=== PATIENT | female | born 1970 | race Caucasian/White ===

== ENCOUNTER 2017-06-09 15:44 | Emergency (ER) | payer BC ==
[~2017-06-09] VITALS: Ht 160 cm; Wt 63.5 kg
[~2017-06-09 15:44] MED LIST: ACETAMINOPHEN-1 EAC1 PO; ALBUTEROL INHAL17 GM IH; AMOXICILLIN 50500 M1 PO; ANORO ELLIPTA1 EACH IH; ASPIR 8181 MG PO; AZITHROMYCIN 2250 MG PO; BACTRIM DS TAB1 EACH PO; BUSPIRONE HCL10 MG PO; CLARITIN OTC; CLARITIN10 M2; CLARITIN10 MG; CLARITIN10 MG PO; COQ10-VIT E 101 EACH PO; DOXYCYCLINE 10100 MG PO; ERYTHROMYCIN E3.5 G1 OP; FISH OIL 1,001000 M2 PO; FLAX OIL1000 MG PO; IBUPROFEN 800800 M1 PO; LOVASTATIN 20 M20 MG PO; MEDROL DOSPAK21 TA1 PO; MEDROLDOSEPACK PO; MULTIVITAMINS1 EAC7 PO; NASONEX17 GM NASAL; NEURONTIN 300300 M1 PO; PERCOCET 5-3251 EACH PO; PRAVACHOL20 MG PO; PREDNISONE 10 M10 M1 PO; PREDNISONE 20 M20 M1 PO; PREDNISONE 20 M20 MG PO; PREDNISONE50 MG PO; PROAIR HFA8.5 GM IH; PROAIR HFA8.5 GM INH; PROMETHAZINE-C120 ML PO; PROTONIX40 M1 PO; PROTONIX40 M3 PO; QVAR HFA 880 MCG/UN1 INH; RIFAMPIN 300 M300 M1 PO; ROBAXIN500 MG PO; ROBITUSSIN100 MG/53 PO; SERTRALINE HCL50 MG PO; TESSALON PERLE100 MG PO; TRAZODONE HCL50 MG PO; TRIAMCINOLONE; TRIAMCINOLONE A80 G2 TOP; ULTRAM 50MG TAB50 MG PO; VENTOLIN HFA 1818 GM INH; ZOFRAN ODT4 MG SUBLING; ZOFRAN4 MG PO; ZPAK PO; [UNRECOGNIZED DRUG - OTHER] PO
[2017-06-09 16:40] LABS: ABSOLUTE BASOPHILS 0.1 thou/uL (0.0-0.2); ABSOLUTE EOSINOPHILS 0.2 thou/uL (0.0-0.7); ABSOLUTE LYMPHOCYTES 1.9 thou/uL (0.8-5.3); ABSOLUTE MONOCYTES 0.6 thou/uL (0.0-1.2); ABSOLUTE NEUTROPHILS 6.5 thou/uL (1.6-8.1); BASOPHILS 1.1 %; EOSINOPHILS 2.3 %; HEMATOCRIT 43.2 % (37.0-47.0); HEMOGLOBIN 13.7 gm/dL (12.0-15.0); LYMPHOCYTES 20.6 %; MCH 30.4 pg (26.0-34.0); MCHC 31.7 g/dL (28.0-37.0); MCV 95.9 fL (80.0-100.0); MONOCYTES 6.5 %; MPV 9.4 fl. (7.2-11.1); NUCLEATED RBCS 0 /100WBC; PLATELET COUNT* 277 thou/uL (150-400); POLYS 69.5 %; RDW-CV 14.8 % (10.5-14.5); WBC 9.3 thou/uL (4.0-11.0)
[2017-06-09 16:49] LABS: CALCIUM 8.8 mg/dL (8.5-10.1); CREATININE 0.7 mg/dL (0.6-1.3); POTASSIUM 4.2 mmol/L (3.5-5.1)
[2017-06-09 16:54] LABS: ALBUMIN 3.1 g/dL (3.4-5.0); TOTAL BILIRUBIN 0.3 mg/dL (<0.1-1.0); TOTAL PROTEIN 6.3 g/dL (6.4-8.2)
[2017-06-09 17:35] LABS: URINE BILIRUBIN NEGATIVE (Negative); URINE BLOOD NEGATIVE (Negative); URINE CLARITY CLEAR; URINE COLOR YELLOW; URINE GLUCOSE-RANDOM NEGATIVE (Negative); URINE KETONES NEGATIVE (Negative); URINE LEUKOCYTES-REFLEX NEGATIVE (Negative); URINE NITRITE-REFLEX NEGATIVE (Negative); URINE PROTEIN NEGATIVE (Negative); URINE UROBILINOGEN 0.2 E.U./dl (0.2-1.0)
[2017-06-09 18:51] VITALS: BP 102/41
--- NOTE | 2017-06-10 10:27 | EKG ---
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 06/10/17 1027 1554 1554 Lorne Mendez MD, FACC /EPI
== END 2017-06-09 18:53 | disposition home or self-care (01) ==
LOC: M.ERS 15:44
PROVIDERS: Personal Emergency Response Attendant
DX: R55 Syncope and collapse (principal); J45.909 Unspecified asthma, uncomplicated; J44.9 Chronic obstructive pulmonary disease, unspecified; F17.210 Nicotine dependence, cigarettes, uncomplicated; Z88.6 Allergy status to analgesic agent; Z88.5 Allergy status to narcotic agent; Z88.1 Allergy status to other antibiotic agents; Z88.8 Allergy status to other drugs, medicaments and biological substances

== ENCOUNTER → 2017-06-11 | Outpatient (CLI) | payer BC ==
[~2017-06-11] MED LIST changes: +CHANTIX1 MG PO; +NITROGLYCERIN0.4 MG SUBLING; +SYMBICORT160 MCG/4. INH
== END ==
LOC: M.RAD 14:18
DX: M43.22 Fusion of spine, cervical region (principal); R55 Syncope and collapse; Z98.890 Other specified postprocedural states

== ENCOUNTER 2017-09-29 18:23 | Emergency (ER) | payer BC ==
[~2017-09-29] VITALS: Ht 160 cm; Wt 59.0 kg
[~2017-09-29 18:23] MED LIST changes: -CHANTIX1 MG PO; -NITROGLYCERIN0.4 MG SUBLING; -SYMBICORT160 MCG/4. INH
[2017-09-29] MEDS ORDERED: CHANTIX1 MG PO (18:43)
[2017-09-29 19:10] LABS: ABSOLUTE BASOPHILS 0.1 thou/uL (0.0-0.2); ABSOLUTE EOSINOPHILS 0.4 thou/uL (0.0-0.7); ABSOLUTE LYMPHOCYTES 2.9 thou/uL (0.8-5.3); ABSOLUTE MONOCYTES 0.7 thou/uL (0.0-1.2); ABSOLUTE NEUTROPHILS 5.5 thou/uL (1.6-8.1); BASOPHILS 1.3 %; HEMOGLOBIN 13.4 gm/dL (12.0-15.0); LYMPHOCYTES 29.8 %; MCH 29.6 pg (26.0-34.0); MCHC 32.8 g/dL (28.0-37.0); MCV 90.2 fL (80.0-100.0); MONOCYTES 7.2 %; MPV 8.5 fl. (7.2-11.1); NUCLEATED RBCS 0 /100WBC; PLATELET COUNT* 246 thou/uL (150-400); POLYS 57.7 %; RBC 4.54 mil/uL (4.20-5.00); WBC 9.6 thou/uL (4.0-11.0)
[2017-09-29 19:18] LABS: ANION GAP 6 mmol/L (7-16); BUN 13 mg/dL (7-18); CALCIUM 8.8 mg/dL (8.5-10.1); CHLORIDE 104 mmol/L (98-107); CO2 29 mmol/L (21-32); CREATININE 0.7 mg/dL (0.6-1.3); GLUCOSE 133 mg/dL (70-99); POTASSIUM 3.4 mmol/L (3.5-5.1); SODIUM 139 mmol/L (136-145)
[2017-09-29 19:25] LABS: ALBUMIN 3.2 g/dL (3.4-5.0); ALKALINE PHOSPHATASE 70 U/L (46-116); SGOT 11 U/L (15-37); SGPT 16 U/L (30-65); TOTAL BILIRUBIN 0.3 mg/dL (<0.1-1.0); TOTAL PROTEIN 6.4 g/dL (6.4-8.2); TROPONIN-I LEVEL <0.06 ng/mL (<0.06)
[2017-09-29 19:56] VITALS: BP 129/74
--- NOTE | 2017-09-30 10:18 | EKG ---
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
== END 2017-09-29 19:57 | disposition home or self-care (01) ==
LOC: M.ERS 18:23
PROVIDERS: Nurse Practitioner Family
DX: R03.0 Elevated blood-pressure reading, without diagnosis of hypertension (principal); R07.9 Chest pain, unspecified; J44.9 Chronic obstructive pulmonary disease, unspecified; E78.00 Pure hypercholesterolemia, unspecified; F17.210 Nicotine dependence, cigarettes, uncomplicated; Z88.1 Allergy status to other antibiotic agents; Z88.5 Allergy status to narcotic agent

== ENCOUNTER → 2017-10-25 | Outpatient (CLI) | payer BC ==
[~2017-10-25] MED LIST changes: +CHANTIX1 MG PO; +NITROGLYCERIN0.4 MG SUBLING; +SYMBICORT160 MCG/4. INH
--- NOTE | 2017-10-25 12:52 | EXE ---
[place] [address] STRESS ECHOCARDIOGRAM Name: MARY CARMEN CHINCHILLA Room: [facility]#: [id number] Admission: 10/25/17 Attend Phys: Yariel Strauss, Discharge: Date of : 70 Date of Service: 10/25/17 1251 Report #: [id number] THIS REPORT FOR: //name// APPROVED REPORT Study performed: 10/25/2017 11:29:43 Exam: Stress Echocardiogram Indication: Chest pain , Dyspnea Patient Location: Out-Patient Stress Nurse: Kassandra Cooper RN Supervising Physician: Lorne Mendez MD Status: routine Ht: 5 ft 3 in HR: 73 bpm BP: 117/68 mmHg Rhythm: NSR Medical History Cardiac Risk Factors: Hyperlipidemia, Smoking, FHX of CAD Procedure The patient underwent an Exercise Stress Test using the Adithya Protocol. Blood pressure, heart rate, and EKG were monitored. An Echocardiogram was performed by echo technician in four stages in quad fashion. At peak stress, four selected images were obtained and placed side by side with resting images for comparison. Stress Test Details Stress Test: Exercise stress testing was performed using a Adithya protocol. HR Resting HR: 73 bpm Max Heart Rate (APMHR): 173 bpm Max HR Achieved: 156 bpm Target HR (85% APMHR): 147 bpm % of APMHR: 90 Recovery HR: 86 bpm HR response to stress: Normal HR response to stress BP Resting BP: 117/68 mmHg Max BP: 164/61 mmHg Recovery BP: 132/61 [place] [address] STRESS ECHOCARDIOGRAM Name: MARY CARMEN CHINCHILLA Room: [facility]#: [id number] Admission: 10/25/17 Attend Phys: Yariel Strauss, Discharge: Date of : 70 Date of Service: 10/25/17 1251 Report #: [id number] Clinical Reason for Termination: Dyspnea, Dizziness Exercise duration: 9 min 35 sec Highest Stage Achieved: Stage 4: 4.2 mph at 16% grade. Exercise capacity: 11.27 METs Pre-Stress Echo The resting Echocardiogram showed normal left ventricular contractility with an estimated Ejection Fraction of about 55-60%. Normal wall motion in all segments on baseline images. Post-Stress Echo The stress Echocardiogram showed normal left ventricular contractility with an estimated Ejection Fraction of about >70%. Normal augmentation of wall motion in all segments on post stress images. Clinical Normal augmentation of myocardial wall segments using a 17 segment model. Conclusion Clinical Response: Non-ischemic Exercise Capacity: Average Stress ECG Response: Ischemic Stress Echo Images: Non-ischemic The patient developed [address] depression in the anterolateral leads in the immediate post exercise phase which promptly cleared. Post stress echo images were entirely normal. Suspect false positive EKG portion. Other Information Study Quality: Good <Conclusion> The patient developed [address] depression in the anterolateral leads in the immediate post exercise phase which promptly cleared. Post stress echo images were entirely normal. Suspect false positive EKG portion. <ELECTRONICALLY SIGNED> By: Oj Costello MD, [facility] 10/25/17 1251 1251 125 Oj Costello MD, FACC /INF
== END ==
LOC: M.CRD 10:40
DX: R07.9 Chest pain, unspecified (principal); R06.00 Dyspnea, unspecified; R07.2 Precordial pain

== ENCOUNTER 2017-11-10 16:52 | Inpatient (IN) | payer BC ==
[~2017-11-10] VITALS: Ht 160 cm; Wt 60.8 kg
[~2017-11-10 16:52] MED LIST changes: -NITROGLYCERIN0.4 MG SUBLING; -SYMBICORT160 MCG/4. INH
[2017-11-10 16:54] VITALS: BP 134/80
[2017-11-10] MEDS ORDERED: NITROGLYCERIN0.4 MG SUBLING (16:57)
[2017-11-10] MEDS ORDERED: ASPIR 8181 MG PO (16:57)
[2017-11-10] MEDS ORDERED: SYMBICORT160 MCG/4. INH (16:58)
[2017-11-10 17:25] LABS: ABSOLUTE BASOPHILS 0.1 thou/uL (0.0-0.2); ABSOLUTE EOSINOPHILS 0.3 thou/uL (0.0-0.7); ABSOLUTE LYMPHOCYTES 2.5 thou/uL (0.8-5.3); ABSOLUTE MONOCYTES 0.7 thou/uL (0.0-1.2); ABSOLUTE NEUTROPHILS 4.2 thou/uL (1.6-8.1); BASOPHILS 1.4 %; EOSINOPHILS 4.1 %; HEMATOCRIT 41.4 % (37.0-47.0); HEMOGLOBIN 13.9 gm/dL (12.0-15.0); LYMPHOCYTES 32.2 %; MCH 30.3 pg (26.0-34.0); MCHC 33.5 g/dL (28.0-37.0); MCV 90.4 fL (80.0-100.0); MONOCYTES 9.1 %; MPV 8.6 fl. (7.2-11.1); NUCLEATED RBCS 0 /100WBC; PLATELET COUNT* 283 thou/uL (150-400); POLYS 53.2 %; RBC 4.57 mil/uL (4.20-5.00); RDW-CV 14.9 % (10.5-14.5); WBC 7.9 thou/uL (4.0-11.0)
[2017-11-10 17:27] LABS: ANION GAP 4 mmol/L (7-16); BUN 13 mg/dL (7-18); CALCIUM 8.7 mg/dL (8.5-10.1); CHLORIDE 105 mmol/L (98-107); CO2 31 mmol/L (21-32); CREATININE 0.9 mg/dL (0.6-1.3); GLUCOSE 95 mg/dL (70-99); POTASSIUM 4.2 mmol/L (3.5-5.1); SODIUM 140 mmol/L (136-145)
[2017-11-10 17:38] LABS: ALBUMIN 3.3 g/dL (3.4-5.0); ALKALINE PHOSPHATASE 72 U/L (46-116); LIPASE 109 U/L (73-393); MAGNESIUM 1.9 mg/dL (1.8-2.4); NT-PRO BRAIN NAT PEPTIDE 39 pg/mL (<300); SGOT 7 U/L (15-37); SGPT 15 U/L (30-65); TOTAL BILIRUBIN 0.2 mg/dL (<0.1-1.0); TOTAL PROTEIN 6.7 g/dL (6.4-8.2); TROPONIN-I LEVEL <0.06 ng/mL (<0.06)
[2017-11-10 19:45] VITALS: BP 118/79
[2017-11-10 20:00] VITALS: BP 135/80
[2017-11-11 03:59] VITALS: BP 120/48
--- NOTE | 2017-11-11 05:01 | NUR ---
ASSUMED PT CARE AT 1930, PT IS A&OX4, PT C/O CHEST AND SHOULDER PAIN THROUGHOUT THE NIGHT, PRN PAIN MEDICATIONS GIVEN WITH RELIEF. PT IS NPO FOR PENDING CARDIOLOGY CONSULT. ADMISSION COMPLETED AND CHARTED. BED IN LOW POSITION, CALL LIGHT IN REACH, BED ALARM ON. PT IS UP STB TO THE BR. HOURLY ROUNDING COMPLETED FOR PT SAFETY.
[2017-11-11 08:00] VITALS: BP 117/61
--- NOTE | 2017-11-11 09:59 | NUR ---
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
--- NOTE | 2017-11-11 10:34 | EKG ---
[place] [address] ELECTROCARDIOGRAM REPORT Name: MARY CARMEN CHINCHILLA Room: [address] IN [facility].#: [id number] Admission: 11/10/17 Attend Phys: Trell White MD Discharge: Date of : 70 Report #: [id number] THIS REPORT FOR: //name// [facility] ED Test Date: 2017-11-10 Test Time: 16:56:33 Pat Name: MARY CARMEN CHINCHILLA Department: Room: Gender: F Executor Of Estate: [place] : 1970 Requested By: Jose Martin Mclean Order Number: [id number] MD: Lorne Mendez Measurements Intervals [place] Rate: 82 P: 39 SD: 133 QRS: 81 QRSD: 95 T: 26 QT: 340 QTc: 397 Interpretive Statements Sinus rhythm Baseline wander in lead(s) V1 Compared to ECG 09/29/2017 18:36:24 No significant changes Electronically Signed On 11-11-2017 10:34:40 CDT by Lorne Mendez [email or web address] <ELECTRONICALLY SIGNED> By: Lorne Mendez MD, [facility] 11/11/17 1034 55 55 Lorne Mendez MD, FACC /EPI
--- NOTE | 2017-11-11 11:18 | NUR ---
INITIAL ASSESSMENT: Pt evaluated for d/c planning needs. Reviewed chart and spoke with nurse and pt. Pt is alert and oriented. Pt states she lives in home with her mother and was independent with ADL's prior to admission to the hospital. 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 Pt uses no DME and has not had home health in the past. Pt plans on returning home on d/c from hospital. Will remain available to assist as needed.
[2017-11-11 11:30] VITALS: BP 136/72
[2017-11-11 13:12] VITALS: BP 136/72
--- NOTE | 2017-11-11 13:38 | NUR ---
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
--- NOTE | 2017-11-17 18:18 | CON ---
[address] [address] CONSULTATION Name: MARY CARMEN CHINCHILLA Room: [address] M.R.#: [id number] Admission: 11/10/17 Attend Phys: Trell White MD Discharge: 11/11/17 Date of : 70 Report #: [id number] THIS REPORT FOR: //name// CC: Trell Millan DO DATE OF SERVICE: 11/11/2017 TYPE OF REPORT: Cardiology consultation. HISTORY OF THE PRESENT ILLNESS: The patient is a 47-year-old single white female who I was asked to see in the hospital today because of chest pain. The patient apparently had a syncopal spell in May at home and was brought to the Emergency Room here at [place] and evaluated. The room was spinning at that time and she is felt to have vertigo. Recently, she has been having a lot of pain in her left shoulder. It comes and goes. It is not related to activity or meals. She had no trauma to her shoulder. She did not fall on the shoulder. She has had some numbness in the left arm. Yesterday, she became diaphoretic and nauseated, lasted for hours at a time. She became short of breath. She came to the Emergency Room yesterday and was admitted. She actually saw Dr. Strauss and may complain of chest pain and had to go to the Emergency Room at [place]. Her blood pressure was elevated at that time. Dr. Strauss felt the pain is atypical for angina. He ordered a stress echocardiogram, which was done on October 25. This showed nonspecific ST-segment changes. Images of the left ventricle were normal. She is felt to have a negative stress echo for ischemia. She just saw my nurse practitioner 4 days ago. She complained of her heart racing. He ordered an event recorder. PAST MEDICAL HISTORY: Otherwise significant for 2 neck surgeries. She has had tubal ligation. She has been 8 times and delivered 5 times. She is currently on menstrual period. She has a history of hypertension, although she was taken off of blood pressure medications because of low blood pressure, has a history of high cholesterol but is off of pravastatin because of the joint aches. CURRENT MEDICATIONS: Include albuterol inhaler, aspirin, Symbicort, BuSpar, Flexeril, Protonix, Chantix and Symbicort. She just had an MRI 3 days ago because of chronic back pain. ALLERGIES: She has an intolerance to FENTANYL. FAMILY HISTORY: Positive for heart disease. SOCIAL HISTORY: She is , lives with her mother [place] [address] CONSULTATION Name: MARY CARMEN CHINCHILLA Room: [address] M.R.#: [id number] Admission: 11/10/17 Attend Phys: Trell White MD Discharge: 11/11/17 Date of : 70 Report #: [id number] works in the [employer]. She smokes half pack of cigarettes a day. Rarely drinks alcohol. REVIEW OF SYSTEMS: She has had no history of stroke, peptic ulcer disease, liver disease, kidney disease or cancer. She saw a psychiatrist in the past for anxiety. She has no chronic skin condition. PHYSICAL EXAMINATION: GENERAL: Revealed a middle-aged female lying in bed. She appeared in mild discomfort secondary to her shoulder pain. VITAL SIGNS: She had a blood pressure of 130/80, pulse is 70 and she is afebrile. HEENT: She is anicteric. Conjunctivae pink. Mucous membranes moist. NECK: Veins nondistended. No carotid bruits. Neck supple. CHEST: Clear to auscultation. CARDIOVASCULAR: Regular rate and rhythm without rub or murmur. ABDOMEN: Soft. EXTREMITIES: Had no edema. Posterior tibial pulse 2+ bilaterally. SKIN: Cool and dry. MUSCULOSKELETAL: There are no joint effusions. SKIN: No rash. RADIOLOGICAL DATA: ECG on admission yesterday showed a sinus rhythm. There was nonspecific ST and T-wave changes. Compared to previous ECG done in September, there has been no change in the ST-segment changes. She had x-rays in the Emergency Room included a portable chest x-ray that showed normal heart size and clear lung vincent. CT scan of the chest using a PE protocol with contrast was done yesterday that showed no evidence of pulmonary embolus. LABORATORY DATA: She had sodium 140 and creatinine 0.9. Liver function studies were normal. Troponin all 0.06. BNP 39. White blood cell count 7.9 and hemoglobin 13.9. IMPRESSION AND RECOMMENDATIONS: 1. Chest pain. Suspect musculoskeletal. Negative stress echocardiogram. Suspect recommend no further cardiac workup. 2. History of elevated cholesterol. The patient is no longer on a statin drug. 3. Elevated blood pressure. The patient was taken off of medications in the past. 4. Palpitations and previous syncopal spell. The patient had an event recorder ordered by my nurse practitioner 5 days ago[address] [address] CONSULTATION Name: MARY CARMEN CHINCHILLA Room: [address] IN [facility].#: [id number] Admission: 11/10/17 Attend Phys: Trell White MD Discharge: 11/11/17 Date of : 70 Report #: [id number] 5. Chronic back pain. The patient had MRI 4 days ago. 6. Tobacco abuse. <ELECTRONICALLY SIGNED> By: Lorne Mendez MD, FACC 11/17/17 1818 1135 1414Dlorene Mendez MD, FACC /nt
== END 2017-11-11 13:39 | disposition home or self-care (01) | DRG 313 ==
LOC: M.ERS 16:52 → M.TBA-ER 18:16 → M.2W 20:15
PROVIDERS: Emergency Medicine Emergency Medical Services; ADMIT Internal Medicine
DX: R07.89 Other chest pain (principal); J44.9 Chronic obstructive pulmonary disease, unspecified; F17.210 Nicotine dependence, cigarettes, uncomplicated; M19.90 Unspecified osteoarthritis, unspecified site; K21.9 Gastro-esophageal reflux disease without esophagitis; G89.29 Other chronic pain; I10 Essential (primary) hypertension; M54.9 Dorsalgia, unspecified; Z88.8 Allergy status to other drugs, medicaments and biological substances; Z88.1 Allergy status to other antibiotic agents; Z82.49 Family history of ischemic heart disease and other diseases of the circulatory system

== ENCOUNTER → 2018-07-24 | Outpatient (CLI) | payer BC ==
[~2018-07-24] MED LIST changes: +NITROGLYCERIN0.4 MG SUBLING; +SYMBICORT160 MCG/4. INH
== END ==
LOC: M.ULTRA 12:44
DX: N83.02 Follicular cyst of left ovary (principal); N83.01 Follicular cyst of right ovary; N92.1 Excessive and frequent menstruation with irregular cycle

== ENCOUNTER 2019-03-24 11:48 | Emergency (ER) | payer BC ==
[~2019-03-24] VITALS: Ht 160 cm; Wt 61.2 kg
[2019-03-24] MEDS ORDERED: INDERAL LA120 M1 PO (12:02)
[2019-03-24] MEDS ORDERED: BUSPIRONE HCL10 MG PO (12:02)
[2019-03-24] MEDS ORDERED: LINZESS145 MCG PO (12:03)
[2019-03-24 12:10] LABS: URINE BILIRUBIN NEGATIVE (Negative); URINE BLOOD NEGATIVE (Negative); URINE CLARITY CLEAR; URINE COLOR YELLOW; URINE GLUCOSE-RANDOM NEGATIVE (Negative); URINE KETONES NEGATIVE (Negative); URINE LEUKOCYTES-REFLEX NEGATIVE (Negative); URINE NITRITE-REFLEX NEGATIVE (Negative); URINE PROTEIN NEGATIVE (Negative); URINE UROBILINOGEN 0.2 E.U./dl (0.2-1.0)
[2019-03-24 12:21] LABS: ABSOLUTE BASOPHILS 0.1 thou/uL (0.0-0.2); ABSOLUTE EOSINOPHILS 0.2 thou/uL (0.0-0.7); ABSOLUTE LYMPHOCYTES 2.6 thou/uL (0.8-5.3); ABSOLUTE MONOCYTES 0.6 thou/uL (0.0-1.2); ABSOLUTE NEUTROPHILS 4.7 thou/uL (1.6-8.1); BASOPHILS 1.2 %; EOSINOPHILS 2.4 %; HEMATOCRIT 38.2 % (37.0-47.0); HEMOGLOBIN 13.1 gm/dL (12.0-15.0); LYMPHOCYTES 32.2 %; MCH 30.6 pg (26.0-34.0); MCHC 34.5 g/dL (28.0-37.0); MCV 88.8 fL (80.0-100.0); MONOCYTES 7.3 %; MPV 8.6 fl. (7.2-11.1); NUCLEATED RBCS 0 /100WBC; PLATELET COUNT* 236 thou/uL (150-400); POLYS 56.9 %; RDW-CV 15.4 % (10.5-14.5); WBC 8.2 thou/uL (4.0-11.0)
[2019-03-24 12:28] LABS: CALCIUM 8.9 mg/dL (8.5-10.1); CREATININE 0.7 mg/dL (0.6-1.3); POTASSIUM 3.4 mmol/L (3.5-5.1)
[2019-03-24 12:30] LABS: APTT 26.6 Seconds (25.0-31.3); PROTIME 9.9 Seconds (9.20-11.50)
[2019-03-24 12:41] LABS: ALBUMIN 3.5 g/dL (3.4-5.0); TOTAL BILIRUBIN 0.3 mg/dL (<0.1-1.0); TOTAL PROTEIN 6.7 g/dL (6.4-8.2)
[2019-03-24 13:04] LABS: INFLUENZA A ANTIGEN Negative (Negative); INFLUENZA B ANTIGEN Negative (Negative)
[2019-03-24] MEDS ORDERED: DOXYCYCLINE 10100 MG PO ×2 (14:21→14:23)
[2019-03-24] MEDS ORDERED: PHENERGAN 25 MG25 M1 PO ×2 (14:22→14:23)
[2019-03-24 14:36] VITALS: BP 118/54
== END 2019-03-24 14:37 | disposition home or self-care (01) ==
LOC: M.ERS 11:48
PROVIDERS: Nurse Practitioner Family
DX: G43.009 Migraine without aura, not intractable, without status migrainosus (principal); J32.9 Chronic sinusitis, unspecified; R09.82 Postnasal drip; R41.82 Altered mental status, unspecified; J44.9 Chronic obstructive pulmonary disease, unspecified; E78.00 Pure hypercholesterolemia, unspecified; F17.210 Nicotine dependence, cigarettes, uncomplicated; Z88.1 Allergy status to other antibiotic agents; Z88.5 Allergy status to narcotic agent; Z88.6 Allergy status to analgesic agent; Z88.8 Allergy status to other drugs, medicaments and biological substances

== ENCOUNTER → 2019-09-10 | Outpatient (CLI) | payer BC ==
[~2019-09-10] MED LIST changes: +INDERAL LA120 M1 PO; +LINZESS145 MCG PO; +PHENERGAN 25 MG25 M1 PO
== END ==
LOC: M.MRI 16:17
DX: J32.4 Chronic pansinusitis (principal); G89.29 Other chronic pain

== ENCOUNTER 2019-09-29 00:06 | Emergency (ER) | payer BC ==
[~2019-09-29] VITALS: Ht 160 cm; Wt 60.8 kg
[2019-09-29] MEDS ORDERED: ZOCOR 20 MG TAB20 M1 PO (00:22)
[2019-09-29 00:29] LABS: URINE BILIRUBIN NEGATIVE (Negative); URINE BLOOD NEGATIVE (Negative); URINE CLARITY CLEAR; URINE COLOR YELLOW; URINE GLUCOSE-RANDOM NEGATIVE (Negative); URINE KETONES NEGATIVE (Negative); URINE LEUKOCYTES-REFLEX NEGATIVE (Negative); URINE NITRITE-REFLEX NEGATIVE (Negative); URINE PROTEIN NEGATIVE (Negative); URINE UROBILINOGEN 0.2 E.U./dl (0.2-1.0)
[2019-09-29 00:51] LABS: ABSOLUTE BASOPHILS 0.1 thou/uL (0.0-0.2); ABSOLUTE EOSINOPHILS 0.5 thou/uL (0.0-0.7); ABSOLUTE LYMPHOCYTES 3.1 thou/uL (0.8-5.3); ABSOLUTE MONOCYTES 1.4 thou/uL (0.0-1.2); ABSOLUTE NEUTROPHILS 8.2 thou/uL (1.6-8.1); BASOPHILS 0.8 %; EOSINOPHILS 3.7 %; HEMATOCRIT 43.1 % (37.0-47.0); HEMOGLOBIN 14.4 gm/dL (12.0-15.0); LYMPHOCYTES 23.5 %; MCH 30.6 pg (26.0-34.0); MCHC 33.4 g/dL (28.0-37.0); MCV 91.8 fL (80.0-100.0); MONOCYTES 10.2 %; MPV 9.1 fl. (7.2-11.1); NUCLEATED RBCS 0 /100WBC; PLATELET COUNT* 259 thou/uL (150-400); POLYS 61.8 %; RDW-CV 14.6 % (10.5-14.5); WBC 13.2 thou/uL (4.0-11.0)
[2019-09-29 00:52] LABS: CALCIUM 8.4 mg/dL (8.5-10.1); CREATININE 0.7 mg/dL (0.6-1.3); POTASSIUM 3.3 mmol/L (3.5-5.1)
[2019-09-29 00:57] LABS: ALBUMIN 3.7 g/dL (3.4-5.0); TOTAL BILIRUBIN 0.2 mg/dL (<0.1-1.0); TOTAL PROTEIN 7.4 g/dL (6.4-8.2)
[2019-09-29] MEDS ORDERED: TYLENOL WITH CO1 TA1 PO (01:58)
[2019-09-29] MEDS ORDERED: ZOFRAN ODT4 MG PO (01:58)
[2019-09-29 02:30] VITALS: BP 134/70
== END 2019-09-29 02:36 | disposition home or self-care (01) ==
LOC: M.ERS 00:06
PROVIDERS: Emergency Medicine
DX: R10.11 Right upper quadrant pain (principal); R10.13 Epigastric pain; R11.2 Nausea with vomiting, unspecified; G43.909 Migraine, unspecified, not intractable, without status migrainosus; J44.9 Chronic obstructive pulmonary disease, unspecified; E78.00 Pure hypercholesterolemia, unspecified; Z90.710 Acquired absence of both cervix and uterus; F17.210 Nicotine dependence, cigarettes, uncomplicated; Z88.1 Allergy status to other antibiotic agents; Z88.5 Allergy status to narcotic agent; Z88.6 Allergy status to analgesic agent

== ENCOUNTER → 2019-10-01 | Outpatient (CLI) | payer BC ==
[~2019-10-01] MED LIST changes: +TYLENOL WITH CO1 TA1 PO; +ZOCOR 20 MG TAB20 M1 PO; +ZOFRAN ODT4 MG PO
--- NOTE | 2019-10-01 12:24 | 2DMMODE ---
[place] [address] 2 D/M-MODE ECHOCARDIOGRAM Name: MARY CARMEN CHINCHILLA Milady Room: [facility]#: [id number] Admission: 10/01/19 Attend Phys: Michael Mahmood, Discharge: Date of : 70 Date of Service: 10/01/19 1222 Report #: [id number] THIS REPORT FOR: cc: Taylor Millan Linda J. DO Liston, Michael J. MD [facility] ~ APPROVED REPORT Study performed: 10/01/2019 10:46:13 EXAM: Comprehensive 2D, Doppler, and color-flow Echocardiogram Patient Location: Out-Patient Status: routine BSA: 1.69 HR: 74 bpm Rhythm: NSR Other Information Study Quality: Good Indications MIGRAINE Echo Enhancing Agent Indication: Rule out Shunt Agent(s) / Amount(s) Used: Agitated Saline 10 cc 2D Dimensions IVSd: 9.26 (7-11mm) LVOT Diam: 19.75 (18-24mm) LVDd: 42.99 mm PWd: 10.36 (7-11mm) LVDs: 25.64 (25-40mm) Aortic Root: 25.53 mm Volumes Left Atrial Volume (Systole) LA ESV Index: 22.00 mL/m2 Aortic Valve AoV Peak Aditya.: 1.57 m/s AO Peak Gr.: 9.87 mmHg LVOT Max P.90 mmHg AO Mean Gr.: 5.28 mmHg LVOT Mean P.[address] [address] 2 D/M-MODE ECHOCARDIOGRAM Name: MARY CARMEN CHINCHILLA Room: [facility]#: [id number] Admission: 10/01/19 Attend Phys: Michael Mahmood, Discharge: Date of : 70 Date of Service: 10/01/19 1222 Report #: [id number] LVOT Max V: 1.11 m/s AO V2 VTI: 30.68 cm LVOT Mean V: 0.62 m/s JULIO (VTI): 2.09 cm2 LVOT V1 VTI: 20.95 cm Mitral Valve E/A Ratio: 1.07 MV Decel. Time: 240.35 ms MV E Max Aditya.: 0.83 m/s MV PHT: 69.70 ms MVA (PHT): 3.16 cm2 TDI E/Lateral E': 6.38 E/Medial E': 6.92 Medial E' Aditya.: 0.12 m/s Lateral E' Aditya.: 0.13 m/s Pulmonary Valve PV Peak Aditya.: 1.06 m/s PV Peak Gr.: 4.50 mmHg Left Ventricle The left ventricle is normal size. There is normal LV segmental wall motion. There is normal left ventricular wall thickness. Left ventricular systolic function is normal. LVEF is 55-60%. The left ventricular diastolic function is normal. Right Ventricle The right ventricle is normal size. The right ventricular systolic function is normal. Atria The left atrium size is normal. The interatrial septum is intact with no evidence for an atrial septal defect. The right atrium size is normal. Aortic Valve The aortic valve is normal in structure. No aortic regurgitation is present. There is no aortic valvular stenosis. Mitral Valve The mitral valve is normal in structure. There is no mitral valve regurgitation noted. No evidence of mitral valve stenosis. Tricuspid Valve The tricuspid valve is normal in structure. The tricuspid valve is normal in structure. Trace tricuspid regurgitation. Unable [place] [address] 2 D/M-MODE ECHOCARDIOGRAM Name: JUAREZ CHINCHILLAKOLE Henning Room: [facility]#: [id number] Admission: 10/01/19 Attend Phys: Michael Mahmood, Discharge: Date of : 70 Date of Service: 10/01/19 1222 Report #: [id number] Pulmonic Valve The pulmonary valve is normal in structure. There is no pulmonic valvular regurgitation. Great Vessels The aortic root is normal in size. IVC is normal in size and collapses >50% with inspiration. Pericardium There is no pericardial effusion. <Conclusion> The left ventricle is normal size. There is normal left ventricular wall thickness. Left ventricular systolic function is normal. LVEF is 55-60%. The left ventricular diastolic function is normal. Trace tricuspid regurgitation. IVC is normal in size and collapses >50% with inspiration. <ELECTRONICALLY SIGNED> By: Moy Sharma MD, FACC 10/01/19 1222 122 122 Moy Sharma MD, FACC /INF
== END ==
LOC: M.ULTRA 07:31 → M.CRD 11:00
DX: R10.11 Right upper quadrant pain (principal); G43.911 Migraine, unspecified, intractable, with status migrainosus

== ENCOUNTER → 2019-10-19 | Outpatient (CLI) | payer BC | LOC: M.NUC 07:27 | DX: R10.11 Right upper quadrant pain (principal); R11.0 Nausea ==

== ENCOUNTER → 2020-01-14 | Outpatient (CLI) | payer BC | LOC: M.ULTRA 12-31 14:00 | PROVIDERS: ATTEND Family Medicine | DX: N83.02 Follicular cyst of left ovary (principal); R10.2 Pelvic and perineal pain; Z90.710 Acquired absence of both cervix and uterus ==

== ENCOUNTER 2020-09-10 12:49 | Emergency (ER) | payer OTHER ==
[~2020-09-10] VITALS: Ht 160 cm; Wt 72.6 kg
[2020-09-10] MEDS ORDERED: AMOXIL 875 MG875 M2 PO (13:14)
[2020-09-10 13:25] VITALS: BP 147/88
== END 2020-09-10 13:26 | disposition home or self-care (01) ==
LOC: M.ERS 12:49
DX: H66.92 Otitis media, unspecified, left ear (principal); J45.909 Unspecified asthma, uncomplicated; J44.9 Chronic obstructive pulmonary disease, unspecified; E78.00 Pure hypercholesterolemia, unspecified; G43.909 Migraine, unspecified, not intractable, without status migrainosus; F17.210 Nicotine dependence, cigarettes, uncomplicated; Z88.1 Allergy status to other antibiotic agents; Z88.6 Allergy status to analgesic agent; Z88.5 Allergy status to narcotic agent; Z88.8 Allergy status to other drugs, medicaments and biological substances; Z90.710 Acquired absence of both cervix and uterus

== ENCOUNTER 2020-10-25 08:28 | Emergency (ER) | payer OTHER ==
[~2020-10-25] VITALS: Ht 160 cm; Wt 73.5 kg
[~2020-10-25 08:28] MED LIST changes: +AMOXIL 875 MG875 M2 PO
[2020-10-25 08:30] VITALS: BP 131/81
[2020-10-25] MEDS ORDERED: ZPAK PO (09:20)
[2020-10-25] MEDS ORDERED: PREDNISONE 20 M20 M1 PO (09:20)
== END 2020-10-25 09:25 | disposition home or self-care (01) ==
LOC: M.ERS 08:28
DX: J40 Bronchitis, not specified as acute or chronic (principal); Z20.822 Contact with and (suspected) exposure to COVID-19; J44.9 Chronic obstructive pulmonary disease, unspecified; E78.00 Pure hypercholesterolemia, unspecified; G43.909 Migraine, unspecified, not intractable, without status migrainosus; F17.210 Nicotine dependence, cigarettes, uncomplicated; Z90.711 Acquired absence of uterus with remaining cervical stump; Z79.82 Long term (current) use of aspirin; Z79.899 Other long term (current) drug therapy; Z88.1 Allergy status to other antibiotic agents; Z88.6 Allergy status to analgesic agent; Z88.5 Allergy status to narcotic agent; Z88.8 Allergy status to other drugs, medicaments and biological substances